=== PATIENT | male | born 1970 | race Caucasian/White ===

== ENCOUNTER → 2017-09-11 | Outpatient (CLI) | payer OTHER ==
--- NOTE | 2017-09-11 14:08 | RADIOLOGY REPORT (SQ) ---
EXAM DESCRIPTION: CHEST PA/LATERAL COMPLETED DATE/TIME: 09/11/2017 1:54 pm REASON FOR STUDY: PRE OP COMPARISON: None. EXAM PARAMETERS: NUMBER OF VIEWS: two views TECHNIQUE: Digital Frontal and Lateral radiographic views of the chest acquired. RADIATION DOSE: NA LIMITATIONS: none FINDINGS: LUNGS AND PLEURA: No acute infiltrates or effusions. . MEDIASTINUM AND HILAR STRUCTURES: No masses or contour abnormalities. HEART AND VASCULAR STRUCTURES: The heart is normal with normal pulmonary vasculature. BONES: Minimal dorsal spondylosis. IMPRESSION: NO ACUTE DISEASE. TECHNICAL DOCUMENTATION: JOB ID: [id number] [email or web address]- All Rights Reserved
[2017-09-11 14:36] LABS: APPEARANCE,URINE CLEAR; BILIRUBIN,URINE NEGATIVE (NEGATIVE); COLOR,URINE COLORLESS; GLUCOSE, URINE NEGATIVE (NEGATIVE); KETONES,URINE NEGATIVE (NEGATIVE); LEUKOCYTE ESTERASE,URINE NEGATIVE (NEGATIVE); NITRITE,URINE NEGATIVE (NEGATIVE); PROTEIN,URINE NEGATIVE (NEGATIVE); URINE SPECIFIC GRAVITY 1.003; UROBILINOGEN,URINE NEGATIVE mg/dL (<2.0)
[2017-09-11 14:41] LABS: ANION GAP 11 (5-19); BLOOD UREA NITROGEN 6 mg/dL (7-20); CALCIUM 9.7 mg/dL (8.4-10.2); CARBON DIOXIDE 24 mmol/L (22-30); CHLORIDE 103 mmol/L (98-107); GLUCOSE 98 mg/dL (75-110); POTASSIUM 4.3 mmol/L (3.6-5.0); SODIUM 137.7 mmol/L (137-145)
[2017-09-11 14:53] LABS: ABSOLUTE BASOPHILS # (AUTO) 0.1 10^3/uL (0.0-0.2); ABSOLUTE EOSINOPHILS # (AUTO) 0.6 10^3/uL (0.0-0.6); ABSOLUTE LYMPHOCYTES (AUTO) 2.2 10^3/uL (0.5-4.7); ABSOLUTE MONOCYTES (AUTO) 1.1 10^3/uL (0.1-1.4); ABSOLUTE NEUT (AUTO) 5.4 10^3/uL (1.7-8.2); BASOPHILS % (AUTO) 1.5 % (0-2); EOSINOPHILS % (AUTO) 6.2 % (0-6); LYMPHOCYTES % (AUTO) 23.4 % (13-45); MEAN CORPUSCULAR HEMOGLOBIN 31.3 pg (27.0-33.4); MEAN CORPUSCULAR HGB CONC 35.6 g/dL (32.0-36.0); MEAN CORPUSCULAR VOLUME 88 fl (80-97); MONOCYTES % (AUTO) 11.5 % (3-13); RED BLOOD COUNT 5.12 10^6/uL (4.35-5.55); RED CELL DISTRIBUTION WIDTH 13.4 % (11.5-14.0); SEGMENTED NEUTROPHILS % (AUTO) 57.4 % (42-78); TOTAL CELLS COUNTED % (AUTO) 100 %; WHITE BLOOD COUNT 9.4 10^3/uL (4.0-10.5)
[2017-09-11 15:13] LABS: PLATELET COUNT 128 10^3/uL (150-450)
--- NOTE | 2017-09-12 08:57 | EKG REPORT ---
SEVERITY:- NORMAL ECG - SINUS RHYTHM : Confirmed by: Arjun Ward 12-Sep-2017 08:56:09
== END ==
LOC: OD 13:21
PROVIDERS: ATTEND Orthopaedic Surgery
DX: Z01.818 Encounter for other preprocedural examination (principal)
CPT/HCPCS: 36415; 71046; 80048; 81001; 85025; 93005; 93010

== ENCOUNTER 2017-09-30 05:31 | Inpatient (IN) | payer OTHER ==
[~2017-09-30 05:31] MED LIST: BUPIVACAINE INJ/PF LIPOSOME/PF 266 MG/20 ML SDV IJ PRN; CEFAZOLIN INJ 1 GM VIAL IV PRN; IBUPROFEN 800 MG/NS 250 ML IV PRN; LACTATED RINGERS 1000 ML IV PRN; LANSOPRAZOLE 15 MG TAB.RAP.DR PO PRN; LIDOCAINE 0.5% INJ-PF (5 MG/ML) 50 ML SDV SUBCUT PRN; OXYCODONE HCL SR 10 MG TABLET PO PRN; VANCOMYCIN HCL 1,000 MG in DEXTROSE 5%-WATER 250 ML IV PRN
[2017-09-30] MEDS ORDERED: THROMBIN (BOVINE) TOPICAL 20000 UNIT VIAL ONE (06:34)
[2017-09-30] MEDS ORDERED: BUPIVACAINE INJ/PF LIPOSOME/PF 266 MG/20 ML SDV ONE (06:34)
[2017-09-30] MEDS ORDERED: THROMBIN (BOVINE) 5000 UNIT EPITAXIS KIT ONE (06:34)
[2017-09-30] MEDS ORDERED: FENTANYL CITRATE INJ/PF 100 MCG/2 ML AMPUL ONE ×2 (06:49→08:59)
[2017-09-30] MEDS ORDERED: MIDAZOLAM 2 MG/2 ML INJ ONE (06:49)
[2017-09-30] MEDS ORDERED: EPHEDRINE SULFATE INJ 50 MG/1 ML AMPULE ONE (06:50)
[2017-09-30] MEDS ORDERED: PROPOFOL INJ 200 MG/20 ML VIAL IV ONE (06:50)
[2017-09-30] MEDS ORDERED: TRANEXAMIC ACID INJ/PF 1,000 MG/10 ML SDV IV ONE ×2 (06:50→10:00)
[2017-09-30] MEDS ORDERED: FENTANYL CITRATE INJ/PF 250 MCG/5 ML AMPULE ONE (06:54)
[2017-09-30] MEDS ORDERED: PROMETHAZINE HCL INJ 25 MG/1 ML VIAL IV PRN (08:00)
[2017-09-30] MEDS ORDERED: MEPERIDINE HCL/PF INJ 25 MG/1 ML DISP.SYRIN IV PRN (08:00)
[2017-09-30] MEDS ORDERED: DIPHENHYDRAMINE HCL 50 MG/ML VIAL IV PRN ×2 (08:00→08:27)
[2017-09-30] MEDS ORDERED: FENTANYL CITRATE INJ/PF 100 MCG/2 ML AMPUL IV PRN ×2 (08:00)
[2017-09-30] MEDS ORDERED: MAG HYDROX/AL HYDROX/SIMETH SUSP 30 ML UDCUP PO PRN (08:27)
[2017-09-30] MEDS ORDERED: RINGERS SOLUTION,LACTATED 1,000 ML IV PRN (08:27)
[2017-09-30] MEDS ORDERED: ZOLPIDEM TARTRATE 5 MG TABLET PO PRN (08:27)
[2017-09-30] MEDS ORDERED: ACETAMINOPHEN 325 MG TABLET PO PRN (08:27)
[2017-09-30] MEDS ORDERED: ONDANSETRON 4 MG TAB.RAPDIS PO PRN (08:27)
--- NOTE | 2017-09-30 08:27 | Operative Report ---
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 Implants to CSS ESTIMATED BLOOD LOSS: Minimal PROCEDURE: With the patient supine on the operative table the left lower extremities prepped and draped in sterile fashion. The limb was elevated for exsanguination tourniquet inflated to 280 torr. A lateral approach the knee is taken line with the previous surgical approach. Upon entering the knee capsule cultures are sent 2. The underlying knee is exposed. Her graft the locking pin is removed followed by the axle, the femoral bushings, the tibial bearing, the yolk and subsequently the tibial bushing. The wound is copiously irrigated with normal saline. The implants are examined. There is polyethylene debris within the joint and burnishing of both the tibial yoke and the axle consistent with polyethylene wear : New implants Biomet OSS femoral bushing set Tibial bearing 12 mm x 67 mm Locking pin Tibial bushing In the recent versus order the tibial bushing is placed into the tibial component followed by the yolk. The tibial bearing placed on top of this. The femoral bushing set is placed in the femoral component. The knee is reduced. The locking pin is placed across the axilla and the yolk. At this point the patella is examined. There is no clear aware of the patella component. There is adequate medial and lateral patellar excursion or mobility. There is central patellofemoral tracking associated with flexion. No further attention is felt to be needed to the patellar component. The tourniquet is deflated. Hemostasis obtained. Previous Ethibond sutures from the previous lateral approach removed. The wound is irrigated with pulse lavage. A subsequent closed using interrupted Vicryl followed by shaneka. A sterile compressive dressing is applied and the patient's return to the PACU in satisfactory condition.
[2017-09-30] MEDS: FENTANYL CITRATE INJ/PF 100 MCG/2 ML AMPUL IV PRN ×2 (09:00→09:10)
[2017-09-30] MEDS ORDERED: HYDROMORPHONE HCL INJ/PF 2 MG/ML AMPULE IV PRN (09:20)
--- NOTE | 2017-09-30 09:31 | RADIOLOGY REPORT (SQ) ---
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 NUMBER OF VIEWS: Two view(s). TECHNIQUE: Digital radiographic images of the left knee post-procedure. LIMITATIONS: None. FINDINGS: BONES: There is some bony resorption along the anterior aspect of the tibia adjacent to th e tibial component probably chronic. DEVICE: Status post distal femur/ total knee replacement which appears old. SOFT TISSUES: Skin shaneka and soft tissue gas are seen laterally. IMPRESSION: Postoperative changes involving the left knee. TECHNICAL DOCUMENTATION: JOB ID: [id number] [email or web address]- All Rights Reserved Reading location - IP/workstation name: [email or web address]
[2017-09-30] MEDS ORDERED: FLUTICASONE PROPIONATE IH SCH (10:00)
[2017-09-30] MEDS ORDERED: (PENDING PHARMACY ID) (Pravastatin Sodium [Pravachol] 40 MG) PO SCH (10:00)
[2017-09-30] MEDS: ASPIRIN 81 MG TABLET, ENT COATED PO SCH (11:06)
[2017-09-30] MEDS: PRENATAL VITAMIN W DHA CAPSULE PO SCH (11:07)
[2017-09-30] MEDS: PREGABALIN 75 MG CAPSULE PO SCH ×2 (11:07→22:33)
[2017-09-30] MEDS: OXYCODONE HCL SR 10 MG TABLET PO SCH ×2 (11:08→22:33)
[2017-09-30] MEDS: SENNOSIDES/DOCUSATE 8.6-50 MG 1 EACH TABLET PO SCH ×2 (11:08→18:45)
[2017-09-30] MEDS: ATORVASTATIN CALCIUM 10 MG TABLET PO SCH (11:09)
[2017-09-30] MEDS ORDERED: ONDANSETRON HCL INJ/PF 4 MG/2 ML SDV ONE (12:21)
[2017-09-30] MEDS ORDERED: GLYCOPYRROLATE INJ 0.4 MG/2 ML VIAL ONE (12:21)
[2017-09-30] MEDS ORDERED: PHENYLEPHRINE HCL INJ/PF 10 MG/1 ML SDV ONE (12:21)
[2017-09-30] MEDS ORDERED: SUCCINYLCHOLINE CHLORIDE INJ 200 MG/10 ML VIAL ONE (12:21)
[2017-09-30] MEDS ORDERED: LIDOCAINE 2% INJ-PF (20 MG/ML) 2 ML AMPUL ONE (12:21)
[2017-09-30] MEDS ORDERED: DEXAMETHASONE SOD PHOSPHATE INJ 4 MG/1 ML VIAL ONE (12:21)
[2017-09-30] MEDS: OXYCODONE HCL IR 5 MG TABLET PO PRN ×2 (15:08→20:08)
[2017-09-30] MEDS ORDERED: IBUPROFEN 800 MG in NORMAL SALINE 250 ML IV SCH (18:00)
[2017-09-30] MEDS: IBUPROFEN 800 MG in DEXTROSE 5%-WATER 250 ML IV SCH (18:45)
[2017-09-30] MEDS ORDERED: VANCOMYCIN HCL 1,000 MG in DEXTROSE 5%-WATER 250 ML IV ONE (21:00)
[2017-10-01] MEDS: IBUPROFEN 800 MG in DEXTROSE 5%-WATER 250 ML IV SCH ×2 (02:55→09:13)
[2017-10-01] MEDS ORDERED: LANSOPRAZOLE 30 MG TAB.RAP.DR PO SCH (06:00)
[2017-10-01] MEDS: OXYCODONE HCL IR 5 MG TABLET PO PRN (06:53)
--- NOTE | 2017-10-01 07:00 | PDOC DISCHARGE SUMMARY ---
General - Admit/Disc Date/PCP Admission Date/Primary Care Provider: 09/30/17 05:31 SHAHLA BOYCE PA-C Discharge Date: 10/01/17 - Discharge Diagnosis (1) Mechanical failure of prosthetic joint Is this a current diagnosis for this admission?: Yes Summary: 47-year-old white male status post left distal femoral resection for chondrosarcoma in the past and reconstruction with endoprosthesis. Patient presents with mechanical symptoms consistent with polyethylene wear. Is admitted for elective revision arthroplasty. - Additional Information Resuscitation Status: Full Code Discharge Diet: As Tolerated, Regular Discharge Activity: Activity As Tolerated, Balance Activity w/Rest, No Driving, No tub bath Home Medications: Fluticasone Propionate [Flovent HFA 44 mcg MDI] 2 puff IH DAILY 09/30/17 Omeprazole Magnesium [Prilosec Otc] 20 mg PO DAILY 09/30/17 Pravastatin Sodium [Pravachol] 40 mg PO DAILY 09/30/17 Ranitidine HCl [Zantac 75 mg Tablet] 75 mg PO DAILY 09/30/17 Aspirin [Ecotrin 81 mg EC Tablet] 81 mg PO DAILY tabec 10/01/17 Oxycodone HCl [Oxy-Ir 5 mg Tablet] 5 mg PO Q6HP PRN tablet 10/01/17 History of Present Illness History of Present Illness: KAREN BADILLO is a 47 year old male Hospital Course Hospital Course: Patient is admitted through the operating where he undergoes uncomplicated revision arthroplasty. Is returned to floor in satisfactory condition. He walks 600 feet on the day of surgery. Morning after surgery stimulating without crutches or assistive devices. Dressings clean dry and intact leg lengths are equal. Distal neurovascular examination is intact. Physical Exam Vital Signs: Temp Pulse Resp BP Pulse Ox 36.6 C 109 H 16 129/88 H 96 09/30/17 23:28 09/30/17 23:28 09/30/17 23:28 09/30/17 23:28 09/30/17 23:28 Intake & Output 09/29/17 09/30/17 10/01/17 06:59 06:59 06:59 Intake Total 0 4830 Output Total 2665 Balance 0 2165 Weight 88.9 kg General appearance: PRESENT: no acute distress Head exam: PRESENT: normocephalic Respiratory exam: PRESENT: unlabored Cardiovascular exam: PRESENT: RRR Pulses: PRESENT: +1 pedal pulses bilateral Vascular exam: PRESENT: normal capillary refill GI/Abdominal exam: PRESENT: soft Rectal exam: PRESENT: deferred Extremities exam: PRESENT: other - Left knee dressing clean dry and intact. There is minimal pedal edema. Distal neurovascular examination is intact. Neurological exam: PRESENT: alert, awake, oriented to person, oriented to place , oriented to time, oriented to situation. ABSENT: motor sensory deficit Psychiatric exam: PRESENT: appropriate affect, normal mood. ABSENT: homicidal ideation, suicidal ideation Skin exam: PRESENT: dry, intact, warm. ABSENT: cyanosis, rash Results Impressions: Knee X-Ray 09/30/17 08:30 IMPRESSION: Postoperative changes involving the left knee. Status: Imported from [facility] Qual[facility] - * [facility] BEING DISCHARGED WITH ANY OF THE FOLLOWING DIAGNOSIS?: No VTE patient discharged on overlapping Therapy?: Yes Plan Discharge Plan: Patient to be discharged home with home health nursing, home health physical therapy, cane. Follow-up with Dr. Mares [facility] for surgery in 2 weeks for staple removal.
[2017-10-01 07:26] LABS: HEMOGLOBIN 14.4 g/dL (13.5-17.0); MEAN CORPUSCULAR HEMOGLOBIN 31.1 pg (27.0-33.4); MEAN CORPUSCULAR HGB CONC 34.3 g/dL (32.0-36.0); MEAN CORPUSCULAR VOLUME 91 fl (80-97); RED BLOOD COUNT 4.63 10^6/uL (4.35-5.55); RED CELL DISTRIBUTION WIDTH 13.6 % (11.5-14.0); WHITE BLOOD COUNT 14.5 10^3/uL (4.0-10.5)
[2017-10-01 07:33] LABS: ANION GAP 9 (5-19); BLOOD UREA NITROGEN 10 mg/dL (7-20); CALCIUM 9.2 mg/dL (8.4-10.2); CARBON DIOXIDE 25 mmol/L (22-30); CHLORIDE 104 mmol/L (98-107); GLUCOSE 115 mg/dL (75-110); POTASSIUM 4.2 mmol/L (3.6-5.0); SODIUM 138.2 mmol/L (137-145)
[2017-10-01 08:01] LABS: PLATELET COUNT 111 10^3/uL (150-450)
[2017-10-01 08:15] VITALS: BP 141/90
[2017-10-01] MEDS: ASPIRIN 81 MG TABLET, ENT COATED PO SCH (09:18)
[2017-10-01] MEDS: PRENATAL VITAMIN W DHA CAPSULE PO SCH (09:18)
[2017-10-01] MEDS: ATORVASTATIN CALCIUM 10 MG TABLET PO SCH (09:18)
[2017-10-01] MEDS: PREGABALIN 75 MG CAPSULE PO SCH (09:18)
[2017-10-01] MEDS: OXYCODONE HCL SR 10 MG TABLET PO SCH (09:18)
[2017-10-01] MEDS: SENNOSIDES/DOCUSATE 8.6-50 MG 1 EACH TABLET PO SCH (09:18)
== END 2017-10-01 11:00 | disposition home health service (06) | DRG 468 ==
LOC: INOR 05:31 → 4S 09:54
PROVIDERS: ADMIT Orthopaedic Surgery; ATTEND Orthopaedic Surgery
PROC: 0SPW0JZ Removal of Synthetic Substitute from Left Knee Joint, Tibial Surface, Open Approach (ICD-10-PCS; 2017-09-30)
PROC: 0SRW0JZ Replacement of Left Knee Joint, Tibial Surface with Synthetic Substitute, Open Approach (ICD-10-PCS; 2017-09-30)
PROC: 0SRU0JZ Replacement of Left Knee Joint, Femoral Surface with Synthetic Substitute, Open Approach (ICD-10-PCS; 2017-09-30)
PROC: 0SPU0JZ Removal of Synthetic Substitute from Left Knee Joint, Femoral Surface, Open Approach (ICD-10-PCS; principal; 2017-09-30 07:30)
DX: T84.063A Wear of articular bearing surface of internal prosthetic left knee joint, initial encounter (principal); K21.9 Gastro-esophageal reflux disease without esophagitis; E78.5 Hyperlipidemia, unspecified; J30.2 Other seasonal allergic rhinitis; G89.29 Other chronic pain; Z96.642 Presence of left artificial hip joint; Z83.3 Family history of diabetes mellitus; Z79.891 Long term (current) use of opiate analgesic; Z82.49 Family history of ischemic heart disease and other diseases of the circulatory system
CPT/HCPCS: 01402; 36415; 80048; 85027; 87070; 87075; 87205; 94799; C9290; J0330; J0690; J1100; J1170; J1741; J2250; J2370; J2405; J2704; J3010; J3370; J3490; J7050; J7060